=== PATIENT | male | born 1940 | race Caucasian/White ===

== ENCOUNTER 2019-06-13 17:19 | Inpatient (IN) | payer MEDICARE, MEDICAID, SELFPAY ==
--- NOTE | ~2019-06-13 | US_ITS ---
EXAMINATION: US right upper quadrant DATE: 06/18/2019 13:15 INDICATION: Elevated liver enzymes TECHNIQUE: Multiple grayscale and Doppler ultrasound images of the abdomen were obtained. COMPARISON: None FINDINGS: The pancreatic head and body are normal in appearance. The pancreatic tail is not visualized. Liver has normal echogenicity and contour, with a smooth surface. No liver lesion identified. No intrahepat ic biliary duct dilation suspected. Portal venous flow was seen in the hepatopetal, normal direction and has normal Doppler waveform. There is hypoechoic material likely representing sludge filling the gallbladder which is dilated to 4.4 cm. No evident gallbladder wall thickening. There is increased ec hogenicity along a portion of the nondependent gallbladder wall with posterior acoustic shadowing, un clear whether this represents mural calcification or gallstones less dense than the more dependent sl udge. Sonographic Ford sign was reported as positive by the magneto specialist. The common bile duct measu res up to 6-7 mm which is within normal limits for age. IMPRESSION: 1. Shadowing along the nondependent wall of the gallbladder, unclear whether this represents gallston es floating within more dense sludge or mural calcifications. Favor the former. 2. Dilated gallbladder with positive Ford sign but without evident gallbladder wall thickening susp icious for early acute cholecystitis. If clinically indicated HIDA scan could be obtained for further evaluation. Reviewed, dictated and finalized at location A. IMPRESSION: 1. Shadowing along the nondependent wall of the gallbladder, unclear whether th is represents gallstones floating within more dense sludge or mural calcificati ons. Favor the former. 2. Dilated gallbladder with positive Ford sign but without evident gallbladde r wall thickening suspicious for early acute cholecystitis. If clinically indic ated HIDA scan could be obtained for further evaluation.
[2019-06-13 17:35] VITALS: BP 165/88; PULSE 68; RESP 18; TEMP 36.7; O2SAT 98
--- NOTE | 2019-06-13 19:33 | ADMGEN ---
This patient, Dagoberto Boyle, was admitted to 2nd Floor Room 210-2. Patient/family oriented to hospital policies and general routines including ID bracelet, bed and alarms, visiting hours, pain management, procedures, bathroom and other care routines, personal items, smoking policy, room service/diet, and visiting hours. Valuables list has been completed. Information on how to activate the Rapid Response Team has been discussed. Patient/Family are encouraged to report perceived risks to care and to ask questions if they do not understand what they are told or what they should do.
--- NOTE | 2019-06-13 22:30 | PC.NURSE ---
Patient appears to be sleeping by the rise and fall of his chest. Respirations even and unlabored. No distress noted. Call light in reach.
[2019-06-14] VITALS: BP 143/83; PULSE 72; RESP 18; TEMP 36.6; O2SAT 96
--- NOTE | 2019-06-14 01:20 | PC.NURSE ---
Patient appears to be sleeping by the rise and fall of his chest. Respirations even and unlabored. No distress noted. Call light in reach.
[2019-06-14 08:00] VITALS: BP 107/63; PULSE 75; RESP 16; TEMP 37.3; O2SAT 97
[2019-06-14] MEDS: lisinopriL 5 MG TABLET PO (08:58)
[2019-06-14] MEDS: RIVAROXABAN 10 MG TABLET 20 MG PO (08:58)
[2019-06-14 08:59] VITALS: PULSE 72
[2019-06-14] MEDS: CYANOCOBALAMIN 1,000 MCG TABLET 1000 MCG PO (08:59)
[2019-06-14] MEDS: hydroCHLOROthiazide 25 MG TABLET PO (08:59)
[2019-06-14] MEDS: atenoloL 50 MG TABLET PO (08:59)
[2019-06-14] MEDS: ESCITALOPRAM OXALATE 10 MG TABLET PO (08:59)
[2019-06-14] MEDS: FOLIC ACID 1 MG TABLET PO (08:59)
[2019-06-14] MEDS: ATORVASTATIN 10 MG TABLET PO (08:59)
[2019-06-14] MEDS: THERAPEUTIC MULTIVITAMINS/MINERALS TAB (*BKC) 1 TABLET PO (11:27)
[2019-06-14 11:54] LABS: Glucose Point of Care 394 (65-105)
--- NOTE | 2019-06-14 12:27 | PM.IMHP ---
H&P: HPI History of Present Illness Chief complaint: rehab <Anayeli Sargent NP - Last Filed: 06/14/19 18:04> Narrative: Dagoberto Boyle is a 79 year old male admitted to swing rehabilitation, late yesterday evening from [facility] in [facility]. On June 04 he reported acute onset of left shoulder pain when getting up from a chair. Workup revealed elevated white count and elevated lactate. He was admitted for sepsis of unknown source. He was started on vancomycin and levofloxacin. White count improved from 12.8-7.6. His blood cultures showed no growth. Culture around his penis grew strep resistant to clindamycin and tetracyclines. He has also had a chronic ulcer on the left posterior heel present since February 2018 under the care of Dr. Castillo and Nain; which as since healed and only a scab remains. UA was clear. CT of his left shoulder showed a small effusion. He was evaluated by Ortho Dr. De Leon and admitted for septic arthritis of the left shoulder. On June 08 they collected a shoulder aspirate sample that grew nothing. On June 09, he underwent arthroscopic irrigation debridement of the left shoulder with Dr. Sierra. We have requested culture results and sensitivities as well as infectious disease notes, but have yet to see those. Dagoberto also has a past history of insulin-dependent diabetes, diabetic neuropathy, and hypertension. Dagoberto has been admitted for swing rehabilitation to improve the mobility and strength of his left shoulder and arm through PT/OT, continue improving through IV antibiotics, and medical monitoring for improvement of infection and reduction of swelling to left arm. <Anayeli Sargent NP - Last Filed: 06/14/19 18:04> Review of Systems Review of Systems: All systems reviewed & are unremarkable except as noted in HPI and below <Anayeli Sargent NP - Last Filed: 06/14/19 18:04> Constitutional: Constitutional: Reports as per HPI, Denies excessive sweating, Denies headache(s), Denies increased appetite, Denies snoring, Reports weakness and Denies weight gain <Anayeli Sargent NP - Last Filed: 06/14/19 18:04> Eyes: Eyes: Reports as per HPI, Denies exophthalmos, Denies diplopia, Denies floaters and Denies loss of peripheral vision <Anayeli Sargent NP - Last Filed: 06/14/19 18:04> ENT: Reports as per HPI, Reports Normal hearing present, Denies facial pain, Denies headache(s), Denies odynophagia and Denies tinnitus <Anayeli Sargent NP - Last Filed: 06/14/19 18:04> Cardiovascular: Cardiovascular: Reports as per HPI, Denies chest pain, Denies diaphoresis, Denies pedal edema, Denies leg edema, Denies lightheadedness and Denies palpitations <Anayeli Sargent [employer]IP[employer]ING FOLDER - Last Filed: 06/14/19 18:04> Respiratory: Respiratory: Reports as per HPI, Denies cough, Denies hemoptysis, Denies dyspnea, Denies dyspnea on exertion, Denies snoring and Denies wheezing <Anayeli Sargent NP - Last Filed: 06/14/19 18:04> Gastrointestinal: Gastrointestinal: Reports as per HPI, Denies abdominal pain, Denies melena, Denies bloating, Denies hematochezia, Denies constipation, Denies heartburn, Denies diarrhea, Denies nausea, Denies odynophagia, Denies vomiting and Denies hematemesis <Anayeli Sargent NP - Last Filed: 06/14/19 18:04> Genitourinary: Genitourinary: Reports as per HPI and Denies flank pain <Anayeli Sargent NP - Last Filed: 06/14/19 18:04> Musculoskeletal: Musculoskeletal: Reports as per HPI, Denies back pain, Reports arthralgias, Reports joint swelling, Denies neck pain and Reports stiffness <Anayeli Sargent NP - Last Filed: 06/14/19 18:04> Comments: Joint pain, stiffness and swelling to left shoulder, left entire arm and left hand. <Anayeli Sargent NP - Last Filed: 06/14/19 18:04> Integumentary/Breasts: Skin/Breast: Reports as per HPI <Anayeli Sargent NP - Last Filed: 06/14/19 18:04> Neurologic: Reports as per HPI and Denies headache(s) <Anayeli Sargent NP - Last Filed: 06/14/19 18:0
[2019-06-14] MEDS: CENTRAL LINE FLUSH 10 ML IV PUSH ×2 (15:02→19:52)
[2019-06-14 16:00] VITALS: BP 131/72; PULSE 71; RESP 16; TEMP 37.3; O2SAT 98
[2019-06-14 16:41] LABS: Glucose Point of Care 269 (65-105)
[2019-06-14] MEDS: metFORMIN HCL XR 500 MG TAB.SR.24H 2000 MG PO (17:52)
[2019-06-14 20:53] LABS: Glucose Point of Care 283 (65-105)
[2019-06-14 23:52] VITALS: BP 131/69; PULSE 66; RESP 18; TEMP 36.1; O2SAT 96
[2019-06-15] MEDS: CENTRAL LINE FLUSH 10 ML IV PUSH ×3 (06:42→20:32)
[2019-06-15] MEDS: lisinopriL 5 MG TABLET PO (07:52)
[2019-06-15] MEDS: RIVAROXABAN 10 MG TABLET 20 MG PO (07:52)
[2019-06-15] MEDS: CYANOCOBALAMIN 1,000 MCG TABLET 1000 MCG PO (07:52)
[2019-06-15] MEDS: ATORVASTATIN 10 MG TABLET PO (07:52)
[2019-06-15] MEDS: THERAPEUTIC MULTIVITAMINS/MINERALS TAB (*BKC) 1 TABLET PO (07:52)
[2019-06-15 07:53] VITALS: PULSE 76
[2019-06-15] MEDS: FOLIC ACID 1 MG TABLET PO (07:53)
[2019-06-15] MEDS: ESCITALOPRAM OXALATE 10 MG TABLET PO (07:53)
[2019-06-15] MEDS: atenoloL 50 MG TABLET PO (07:53)
[2019-06-15] MEDS: hydroCHLOROthiazide 25 MG TABLET PO (07:55)
[2019-06-15 08:00] VITALS: BP 105/65; PULSE 76; RESP 18; TEMP 36.6; O2SAT 96
[2019-06-15 08:03] LABS: Glucose Point of Care 177 (65-105)
--- NOTE | 2019-06-15 09:48 | PC.NURSE ---
linda calls to request disposable razor for pt, put in pts room but he does not want to use it at this time, pt uses wipes to wash up, needs assistance with wiping buttocks/back, assist of 1 to stand, pt is sitting in chair
[2019-06-15 10:31] LABS: Basophils Absolute Auto 0.04 K/mm3 (0.00-0.10); Basophils Percent Auto 0.4 % (0.0-1.0); Eosinophils Absolute Auto 0.13 K/mm3 (0.02-0.50); Eosinophils Percent Auto 1.2 % (1.0-6.0); Hematocrit 42.6 % (37.0-46.0); Hemoglobin 13.9 g/dL (12.4-15.3); Immature Granulocyte Absolute 0.07 K/mm3 (0.00-0.00); Immature Granulocyte Percent A 0.6 % (0.0-0.0); Lymphocytes Absolute Auto 0.91 K/mm3 (1.10-4.50); Lymphocytes Percent Auto 8.3 % (18.0-42.0); Mean Corpuscular HGB Conc 32.6 g/dL (32.0-36.0); Mean Corpuscular Hemoglobin 29.8 pg (27.0-31.0); Mean Corpuscular Volume 91.4 fL (78.0-102.0); Mean Platelet Volume 9.4 fl (8.7-11.0); Monocytes Absolute Auto 0.68 K/mm3 (0.10-0.90); Monocytes Percent Auto 6.2 % (2.0-11.0); Neutrophils Absolute Auto 9.2 K/mm3 (1.7-7.2); Neutrophils Percent Auto 83.3 % (50.0-70.0); Platelet Count Result 293 K/mm3 (150-420); Red Blood Count 4.66 M/mm3 (4.70-6.10); Red Cell Distribution Width 13.4 % (11.6-14.4)
[2019-06-15 11:03] LABS: Alanine Aminotransferase 162 U/L (16-63); Albumin Level 2.2 g/dL (3.4-5.0); Alkaline Phosphatase 326 U/L (46-116); Aspartate Amino Transferase 115 U/L (15-37); Bilirubin,Total 0.7 mg/dL (0.00-1.00); Blood Urea Nitrogen 21 mg/dL (7-18); Calcium 8.1 mg/dL (8.5-10.1); Carbon Dioxide 30 mmol/L (21-32); Chloride 98 mmol/L (98-108); Estimated CRCL calculation 44 ml/min; Estimated Glomerular Filt Rate 56; Glucose 248 mg/dL (70-99); Osmolality Calculated 295 mOsm/kg (285-295); Sodium 137 mmol/L (136-145); Total Protein 5.7 g/dL (6.4-8.2)
[2019-06-15 11:35] LABS: Erythrocyte Sedimentation Rate 40 mm/hr (0-20)
[2019-06-15 11:48] LABS: Glucose Point of Care 268 (65-105)
--- NOTE | 2019-06-15 13:00 | PM.IMPN ---
Progress Note: A&P Assessment and Plan (1) Weakness: Code(s): R53.1 - Weakness Status: Acute Assessment and Plan: admitted to swing rehabilitation here from [facility] in [facility]. due to prolonged hospitalization of approximately 9-10 days, now has weakness/instability/imbalance and need for assistance with all ADLs also due to left shoulder surgery has weakness/instability/imbalance and need for assistance with all ADLs found to have septic arthritis and needs further IV antibiotics, pain control, and PT/OT. may participate in therapeutic activities (2) Septic arthritis: Code(s): M00.9 - Pyogenic arthritis, unspecified Status: Acute Assessment and Plan: June 04 he reported acute onset of left shoulder pain when getting up from a chair. Workup revealed elevated white count and elevated lactate. started on vancomycin and levofloxacin. White count improved from 12.8-7.6. His blood cultures showed no growth. Culture around his penis grew strep resistant to clindamycin and tetracyclines. He has also had a chronic ulcer on the left posterior heel present since February 2018 under the care of Dr. Castillo and Nain; which as since healed and only a scab remains. CT of his left shoulder showed a small effusion. He was evaluated by Ortho Dr. De Leon and admitted for septic arthritis of the left shoulder. On June 08 they collected a shoulder aspirate sample that grew nothing. June 09, he underwent arthroscopic irrigation debridement of the left shoulder with Dr. Sierra. We have requested culture results and sensitivities as well as infectious disease notes, but have yet to see those. Dagoberto also has a past history of insulin-dependent diabetes, diabetic neuropathy, and hypertension. Dagoberto has been admitted for swing rehabilitation to improve the mobility and strength of his left shoulder and arm through PT/OT, continue improving through IV antibiotics, and medical monitoring for improvement of infection and reduction of swelling to left arm. CALL and SCHEDULE Follow up in 1 week after discharge; with Surgeon Dr. David Sierra, [facility], in [place], [place]. [phone]. Then on July 23 at 8am, arrive at 7:45am, appointment with Dr. Prasanna Dominguez in [place], [place]. [facility] medical group, Foot and Ankle Specialist. [phone] (3) HTN (hypertension): Code(s): I10 - Essential (primary) hypertension Status: Acute Assessment and Plan: BPs well controlled Vital signs Q8 hours. Will continue to monitor (4) IDDM (insulin dependent diabetes mellitus): Status: Acute Assessment and Plan: a.c. HS glucose bedside checks continue his home medications: Jardiance 10 mg Daily Tresiba insulin 30 units daily low dose SSI with hypoglycemia PRN meds in place as well. diabetic carb controlled diet Glucose levels today 177 will continue to monitor Subjective Date/time seen: 06/15/19 13:00 Mr. Boyle'arsalan labs were drawn and reviewed today. His white count was 6.6 on June 11 at [facility], today on June 14 his white count is 11.0. He has been on IV Rocephin since his swing rehab admission , per discharge orders from [facility]. We have requested Infectious Disease notes and consultation notes, as well as culture sensitivities from [facility] for the last 3 days and have yet to receive those. I called [facility] microbiology department ([phone]) today and gained the following information; he never had a urine culture completed there, his blood cultures x2 on June 08 showed no growth, his left shoulder needle aspiration on June 08 showed no growth, and his left shoulder incision and drainage culture on June 09 showed no growth. It is my understanding based on the review of all the hospitalist notes from [facility] that I have read, that his cultur
[2019-06-15 13:46] LABS: Add Urine Microscopic? YES; Appearance Urine Clear (Clear); Bilirubin Urine Negative (Negative); Blood Urine Negative (Negative); Color Urine Yellow (Yellow); Glucose Urine UA 3+ (Negative); Ketones Urine Negative (Negative); Leukocyte Esterase Ur Negative (Negative); Nitrate Urine Negative (Negative); Protein Urine Negative (Negative); Urobilinogen Urine 0.2 mg/dL (0.2-1.0)
[2019-06-15 13:51] LABS: RBC Urine None seen /hpf (0-2); Squamous Epithelial Cell Urine None seen /hpf (Few); WBC Urine None seen /hpf (0-3)
[2019-06-15 13:52] LABS: Bacteria Urine None seen /hpf; Budding Yeast Urine Present /hpf
[2019-06-15 15:40] VITALS: BP 128/60; PULSE 60; RESP 20; TEMP 36.4; O2SAT 98
[2019-06-15 16:35] LABS: Glucose Point of Care 335 (65-105)
[2019-06-15] MEDS: metFORMIN HCL XR 500 MG TAB.SR.24H 2000 MG PO (17:33)
--- NOTE | 2019-06-15 18:28 | PC.NURSE ---
Back to bed using gait belt & assist of two. Needed objects in reach.
--- NOTE | 2019-06-15 20:09 | PM.EVENT ---
Event Note Event Note Event Note: Discussed with Anayeli Sargent. Pt seen by me. Swelling of left fingers, hand and wrist. No redness or tenderness. Left shoulder without redness or swelling. Able to externally rotate a few degrees past neutral. I reviewed and agree with Anayeli Sargent's note. Await culture results from recent joint lavage; in the meantime add vanco back to IV Ang.
[2019-06-15 20:54] LABS: Glucose Point of Care 218 (65-105)
[2019-06-16] VITALS: BP 131/70; PULSE 68; RESP 18; TEMP 36.5; O2SAT 97
[2019-06-16] MEDS: CENTRAL LINE FLUSH 10 ML IV PUSH ×3 (05:55→21:34)
[2019-06-16 07:45] VITALS: BP 138/75; PULSE 72; RESP 18; TEMP 36.7; O2SAT 97
[2019-06-16 08:04] LABS: Glucose Point of Care 100 (65-105)
[2019-06-16 09:47] VITALS: PULSE 72
[2019-06-16] MEDS: lisinopriL 5 MG TABLET PO (09:47)
[2019-06-16] MEDS: hydroCHLOROthiazide 25 MG TABLET PO (09:47)
[2019-06-16] MEDS: FOLIC ACID 1 MG TABLET PO (09:47)
[2019-06-16] MEDS: ATORVASTATIN 10 MG TABLET PO (09:47)
[2019-06-16] MEDS: ESCITALOPRAM OXALATE 10 MG TABLET PO (09:47)
[2019-06-16] MEDS: atenoloL 50 MG TABLET PO (09:47)
[2019-06-16] MEDS: THERAPEUTIC MULTIVITAMINS/MINERALS TAB (*BKC) 1 TABLET PO (09:47)
[2019-06-16] MEDS: CYANOCOBALAMIN 1,000 MCG TABLET 1000 MCG PO (09:47)
[2019-06-16] MEDS: RIVAROXABAN 10 MG TABLET 20 MG PO (09:47)
[2019-06-16 11:26] LABS: Glucose Point of Care 243 (65-105)
[2019-06-16] MEDS: SACCHAROMYCES BOULARDII 250 MG CAPSULE PO ×2 (12:52→17:12)
--- NOTE | 2019-06-16 13:57 | PM.IMPN ---
Progress Note: A&P Assessment and Plan (1) Weakness: Code(s): R53.1 - Weakness Status: Acute Assessment and Plan: admitted to swing rehabilitation here from [facility] in [facility]. due to prolonged hospitalization of approximately 9-10 days, now has weakness/instability/imbalance and need for assistance with all ADLs also due to left shoulder surgery has weakness/instability/imbalance and need for assistance with all ADLs found to have septic arthritis and needs further IV antibiotics, pain control, and PT/OT. may participate in therapeutic activities (2) Septic arthritis: Code(s): M00.9 - Pyogenic arthritis, unspecified Status: Acute Assessment and Plan: June 04 he reported acute onset of left shoulder pain when getting up from a chair. Workup revealed elevated white count and elevated lactate. started on vancomycin and levofloxacin. White count improved from 12.8-7.6. His blood cultures showed no growth. Culture around his penis grew strep resistant to clindamycin and tetracyclines. He has also had a chronic ulcer on the left posterior heel present since February 2018 under the care of Dr. Castillo and Nain; which as since healed and only a scab remains. CT of his left shoulder showed a small effusion. He was evaluated by Ortho Dr. De Leon and admitted for septic arthritis of the left shoulder. On June 08 they collected a shoulder aspirate sample that grew nothing. June 09, he underwent arthroscopic irrigation debridement of the left shoulder with Dr. Sierra. We have requested culture results and sensitivities as well as infectious disease notes, but have yet to see those. Dagoberto also has a past history of insulin-dependent diabetes, diabetic neuropathy, and hypertension. Dagoberto has been admitted for swing rehabilitation to improve the mobility and strength of his left shoulder and arm through PT/OT, continue improving through IV antibiotics, and medical monitoring for improvement of infection and reduction of swelling to left arm. CALL and SCHEDULE Follow up in 1 week after discharge; with Surgeon Dr. David Sierra, [facility], in [place], [place]. [phone]. Then on July 23 at 8am, arrive at 7:45am, appointment with Dr. Prasanna Dominguez in [place], [place]. [facility] medical group, Foot and Ankle Specialist. [phone] (3) HTN (hypertension): Code(s): I10 - Essential (primary) hypertension Status: Acute Assessment and Plan: BPs well controlled Vital signs Q8 hours. Will continue to monitor (4) IDDM (insulin dependent diabetes mellitus): Status: Acute Assessment and Plan: a.c. HS glucose bedside checks continue his home medications: Jardiance 10 mg Daily Tresiba insulin 30 units daily low dose SSI with hypoglycemia PRN meds in place as well. diabetic carb controlled diet Glucose levels today 177 will continue to monitor Subjective Date/time seen: 06/16/19 13:57 Mr. Boyle was lying in bed on his right side when I went to see him and examined him this morning. He was doing well. He had just completed his physical therapy session. His left arm was elevated on a pillow, slightly swollen, but much better than 2 days ago. The left arm skin is lose and there is no firmness or tightness to his left arm at all today. There is no redness or drainage to his incisions today. Nursing staff is examining them daily, and dressing them and treating them as I have instructed and ordered. His right arm PICC line site looks well, without redness, without drainage, and without pain. His PICC dressing is clean and dry an occlusive. Continuing to attempt to get his infectious disease notes and discharge instructions from [facility]. We also have questions about what cultures were collected and their sensitivities resulting. We are without any culture results that warrant IV Rocephin to be c
--- NOTE | 2019-06-16 14:15 | PC.NURSE ---
This nurse spoke with Nurse Lay from office about patient restrictions and sutures. Patient does not have any mobility restrictions to left arm per . Sutures to be removed 2 weeks from operation date. gave FISHING ACCESSORIES MAKER at this facility okay to remove them here. Call back number for office- [phone]
[2019-06-16 15:45] VITALS: BP 130/57; PULSE 70; RESP 18; TEMP 37.3; O2SAT 97
[2019-06-16] MEDS: metFORMIN HCL XR 500 MG TAB.SR.24H 2000 MG PO (17:12)
[2019-06-16 17:26] LABS: Glucose Point of Care 188 (65-105)
[2019-06-16 21:43] LABS: Glucose Point of Care 160 (65-105)
[2019-06-17] VITALS: BP 140/76; PULSE 73; RESP 20; TEMP 36.7; O2SAT 95
[2019-06-17] MEDS: CENTRAL LINE FLUSH 10 ML IV PUSH ×3 (05:39→20:55)
[2019-06-17 07:45] VITALS: BP 145/82; PULSE 72; RESP 18; TEMP 36.4; O2SAT 94
[2019-06-17 07:49] LABS: Glucose Point of Care 120 (65-105)
[2019-06-17 08:00] VITALS: O2SAT 97
[2019-06-17 08:24] VITALS: PULSE 72
[2019-06-17] MEDS: atenoloL 50 MG TABLET PO (08:24)
[2019-06-17] MEDS: RIVAROXABAN 10 MG TABLET 20 MG PO (08:24)
[2019-06-17] MEDS: ESCITALOPRAM OXALATE 10 MG TABLET PO (08:25)
[2019-06-17] MEDS: THERAPEUTIC MULTIVITAMINS/MINERALS TAB (*BKC) 1 TABLET PO (08:25)
[2019-06-17] MEDS: FOLIC ACID 1 MG TABLET PO (08:25)
[2019-06-17] MEDS: ATORVASTATIN 10 MG TABLET PO (08:25)
[2019-06-17] MEDS: CYANOCOBALAMIN 1,000 MCG TABLET 1000 MCG PO (08:25)
[2019-06-17] MEDS: hydroCHLOROthiazide 25 MG TABLET PO (08:25)
[2019-06-17] MEDS: lisinopriL 5 MG TABLET PO (08:25)
[2019-06-17] MEDS: SACCHAROMYCES BOULARDII 250 MG CAPSULE PO ×2 (08:27→17:57)
--- NOTE | 2019-06-17 10:30 | PC.NURSE ---
Patient sitting up in chair resting. Ice pack cont. on shoulder. Denies any needs. Working on word search. call light at side.
[2019-06-17 11:35] LABS: Glucose Point of Care 190 (65-105)
--- NOTE | 2019-06-17 12:39 | P.PNCROSS_ITS ---
Event Note Event Note Event Note: Yesterday, we were finally able to get in touch with the Orthopedic Surgeon and his Infectious disease physician's office as well for further orders and clarifications. His orthopedic surgeon said there was no restrictions for his left arm or shoulder. Orthopedic Surgeon [facility] Sutures 2 weeks s/p I&D on June 09 which would have suture removal on 06/23. The infectious disease physician also informed us yesterday that he wants a CRP checked weekly with labs, and the patient is to continue on Rocephin IV for 2 weeks at 2 g every 24 hours. While at [facility], his ESR was 92 and CRP is 19.9 on June 09, and Procalcitonin level 0.37 and CRP was 16.20 on June 11 while on IV Vanc and IV Rocephin. ESR is 40 and CRP is 20 on June 14 while on only IV Rocephin. Will continue to monitor. Infectious disease physician Dr. Ballesteros wants patient's weekly labs (CBC, BMP or CMP, and CRP) faxed to him at [phone]. Discussed with Professional Golf Tournament Player, plan for possible discharge to home on June 29. Dagoberto is to have follow up appointments with both his Orthopedic Surgeon Dr. Sierra and his Infectious disease physician Dr. Ballesteros to be seen in 1-2 weeks s/p discharge from [facility]. <Anayeli Sargent NP - Last Filed: 06/17/19 13:15>
[2019-06-17 15:35] VITALS: BP 129/69; PULSE 72; RESP 18; TEMP 36.6; O2SAT 97
[2019-06-17 17:38] LABS: Glucose Point of Care 249 (65-105)
[2019-06-17] MEDS: metFORMIN HCL XR 500 MG TAB.SR.24H 2000 MG PO (17:58)
[2019-06-17 21:18] LABS: Glucose Point of Care 242 (65-105)
[2019-06-18] VITALS: BP 155/68; PULSE 72; RESP 18; TEMP 36.4; O2SAT 95
--- NOTE | 2019-06-18 02:09 | PC.NURSE ---
pt sleeping, respirations even and regular, no evidence of distress noted.
[2019-06-18] MEDS: CENTRAL LINE FLUSH 10 ML IV PUSH ×3 (05:26→21:27)
[2019-06-18 08:00] VITALS: BP 100/60; PULSE 96; RESP 18; TEMP 36.6; O2SAT 96
[2019-06-18] MEDS: RIVAROXABAN 10 MG TABLET 20 MG PO (08:12)
[2019-06-18] MEDS: SACCHAROMYCES BOULARDII 250 MG CAPSULE PO ×2 (08:12→17:42)
[2019-06-18] MEDS: CYANOCOBALAMIN 1,000 MCG TABLET 1000 MCG PO (08:13)
[2019-06-18] MEDS: ATORVASTATIN 10 MG TABLET PO (08:13)
[2019-06-18] MEDS: FOLIC ACID 1 MG TABLET PO (08:13)
[2019-06-18] MEDS: ESCITALOPRAM OXALATE 10 MG TABLET PO (08:13)
[2019-06-18] MEDS: THERAPEUTIC MULTIVITAMINS/MINERALS TAB (*BKC) 1 TABLET PO (08:13)
[2019-06-18 09:23] LABS: Basophils Absolute Auto 0.04 K/mm3 (0.00-0.10); Basophils Percent Auto 0.5 % (0.0-1.0); Eosinophils Absolute Auto 0.16 K/mm3 (0.02-0.50); Hematocrit 40.8 % (37.0-46.0); Hemoglobin 13.7 g/dL (12.4-15.3); Immature Granulocyte Absolute 0.07 K/mm3 (0.00-0.00); Immature Granulocyte Percent A 0.9 % (0.0-0.0); Lymphocytes Absolute Auto 1.15 K/mm3 (1.10-4.50); Lymphocytes Percent Auto 14.5 % (18.0-42.0); Mean Corpuscular HGB Conc 33.6 g/dL (32.0-36.0); Mean Corpuscular Hemoglobin 30.2 pg (27.0-31.0); Mean Corpuscular Volume 89.9 fL (78.0-102.0); Mean Platelet Volume 8.9 fl (8.7-11.0); Monocytes Absolute Auto 0.75 K/mm3 (0.10-0.90); Monocytes Percent Auto 9.5 % (2.0-11.0); Neutrophils Absolute Auto 5.7 K/mm3 (1.7-7.2); Neutrophils Percent Auto 72.6 % (50.0-70.0); Platelet Count Result 411 K/mm3 (150-420); Red Blood Count 4.54 M/mm3 (4.70-6.10); Red Cell Distribution Width 13.2 % (11.6-14.4); White Blood Count 7.9 K/mm3 (4.8-10.8)
[2019-06-18 09:38] LABS: Alanine Aminotransferase 95 U/L (16-63); Albumin Level 2.1 g/dL (3.4-5.0); Alkaline Phosphatase 250 U/L (46-116); Anion Gap 13.4 mmol/L (7-16); Aspartate Amino Transferase 51 U/L (15-37); Bilirubin,Total 0.7 mg/dL (0.00-1.00); Blood Urea Nitrogen 17 mg/dL (7-18); Calcium 8.6 mg/dL (8.5-10.1); Carbon Dioxide 28 mmol/L (21-32); Chloride 99 mmol/L (98-108); Estimated CRCL calculation 47 ml/min; Estimated Glomerular Filt Rate 60; Glucose 233 mg/dL (70-99); Osmolality Calculated 292 mOsm/kg (285-295); Potassium 3.4 mmol/L (3.5-5.1); Sodium 137 mmol/L (136-145); Total Protein 6.7 g/dL (6.4-8.2)
[2019-06-18 10:02] LABS: CRP 17.2 mg/dL (0.0-0.9)
[2019-06-18 10:23] LABS: Erythrocyte Sedimentation Rate 44 mm/hr (0-20)
[2019-06-18 11:12] VITALS: BP 128/74; PULSE 73; RESP 18; TEMP 36.9; O2SAT 96
[2019-06-18 11:47] LABS: Occult Blood Negative (Negative)
[2019-06-18 12:31] LABS: Alanine Aminotransferase 85 U/L (16-63); Alkaline Phosphatase 232 U/L (46-116); Aspartate Amino Transferase 48 U/L (15-37); Bilirubin Direct 0.3 mg/dL (0-0.2); Bilirubin,Total 0.6 mg/dL (0.00-1.00); Ferritin 541 ng/mL (26-388); Iron 20 ug/dL (65-175); Total Protein 6.2 g/dL (6.4-8.2)
[2019-06-18 12:35] LABS: Acetaminophen 0 ug/mL (10-30)
[2019-06-18 12:56] LABS: Ammonia < 10 umol/L (11-32)
[2019-06-18 13:01] LABS: CRP 16.5 mg/dL (0.0-0.9)
[2019-06-18 13:03] LABS: Percent Iron Saturation 13 % (12-57)
[2019-06-18 13:05] LABS: Bilirubin Direct 0.3 mg/dL (0-0.2); Bilirubin Indirect 0.4 mg/dL (0-1.0)
[2019-06-18 13:11] LABS: Thyroid Stimulating Hormone Reflex 1.77 u/IU/mL (0.36-3.74)
--- NOTE | 2019-06-18 15:38 | P.PNIM_ITS ---
Progress Note: A&P Assessment and Plan (1) Weakness: Code(s): R53.1 - Weakness Status: Acute Assessment and Plan: * admitted to swing rehabilitation here from [facility] in [facility]. * Exhibit tolerance during physical activity as evidenced by a normal fluctuation of vital signs during physical activity. * Patient will be ability to perform required activities of daily living. * Provide appropriate nutrition for healing and strength. * Use appropriate to prevent falls. * Continue physical therapy/occupational therapy. (2) Septic arthritis: Code(s): M00.9 - Pyogenic arthritis, unspecified Status: Acute Assessment and Plan: * CT of his left shoulder showed a small effusion. He was evaluated by Ortho Dr. De Leon and admitted for septic arthritis of the left shoulder. * On June 08 they collected a shoulder aspirate sample that grew nothing. * June 09, he underwent arthroscopic irrigation debridement of the left shoulder with Dr. Sierra. We have requested culture results and sensitivities as well as infectious disease notes, but have yet to see those. * Dagoberto has been admitted for swing rehabilitation to improve the mobility and strength of his left shoulder and arm through PT/OT, continue improving through IV antibiotics, and medical monitoring for improvement of infection and reduction of swelling to left arm. * CALL and SCHEDULE Follow up in 1 week after discharge; with Surgeon Dr. David Sierra, [facility], in [place], [place]. [phone]. * Then on July 23 at 8am, arrive at 7:45am, appointment with Dr. Prasanna Dominguez in [place], [place]. [facility] medical group, Foot and Ankle Specialist. [phone] (3) HTN (hypertension): Code(s): I10 - Essential (primary) hypertension Status: Acute Assessment and Plan: * BPs soft * Vital signs Q8 hours. * Will continue to monitor * will adjust medication as needed (4) IDDM (insulin dependent diabetes mellitus): Status: Acute Assessment and Plan: * blood sugar less than 200 * continue Accu-Cheks * continue low dose SSI with hypoglycemia PRN meds in place as well. * diabetic carb controlled diet * will continue to monitor, will adjust medication as needed (5) Elevated liver enzymes: Code(s): R74.8 - Abnormal levels of other serum enzymes Status: Acute Assessment and Plan: * it appears that patient's AST and ALT was elevated at [facility] AST is 83 ALT is 113. unsure if that is patient's baseline. * ordered hepatic panel with ultrasound of the abdomen all pending * for hepatotoxicity medication Subjective Date/time seen: 06/18/19 15:38 patient has no complaints at this time. Patient able to tolerate all meals , slept well. Patient denies SOB, CP, palpitation, extremity numbness, lightheadness, dizziness, constipation, diarrhea, chills or fever. . patient is currently a swing bed patient and noted that his PT OT is going well. his liver enzymes her elevated I will complete of hepatic panel with the abdominal ultrasound. Patient able to tolerate all meals , slept well . Patient denies SOB, CP, palpitation, extremity numbness, lightheadness, dizziness, constipation, diarrhea, chills or fever. Review of Systems Review of Systems: All systems reviewed & are unremarkable except as noted in HPI and below Constitutional: Constitutional: Reports as per HPI, Denies excessive sweating, Denies headache(s), Denies increased appetite, Denies snoring, Reports weakness and
--- NOTE | 2019-06-18 15:38 | PM.IMPN ---
Progress Note: A&P Assessment and Plan (1) Weakness: Code(s): R53.1 - Weakness Status: Acute Assessment and Plan: admitted to swing rehabilitation here from [facility] in [facility]. Exhibit tolerance during physical activity as evidenced by a normal fluctuation of vital signs during physical activity. Patient will be ability to perform required activities of daily living. Provide appropriate nutrition for healing and strength. Use appropriate to prevent falls. Continue physical therapy/occupational therapy. (2) Septic arthritis: Code(s): M00.9 - Pyogenic arthritis, unspecified Status: Acute Assessment and Plan: CT of his left shoulder showed a small effusion. He was evaluated by Ortho Dr. De Leon and admitted for septic arthritis of the left shoulder. On June 08 they collected a shoulder aspirate sample that grew nothing. June 09, he underwent arthroscopic irrigation debridement of the left shoulder with Dr. Sierra. We have requested culture results and sensitivities as well as infectious disease notes, but have yet to see those. Dagoberto has been admitted for swing rehabilitation to improve the mobility and strength of his left shoulder and arm through PT/OT, continue improving through IV antibiotics, and medical monitoring for improvement of infection and reduction of swelling to left arm. CALL and SCHEDULE Follow up in 1 week after discharge; with Surgeon Dr. David Sierra, [facility], in [place], [place]. [phone]. Then on July 23 at 8am, arrive at 7:45am, appointment with Dr. Prasanna Dominguez in [place], [place]. [facility] medical group, Foot and Ankle Specialist. [phone] (3) HTN (hypertension): Code(s): I10 - Essential (primary) hypertension Status: Acute Assessment and Plan: BPs soft Vital signs Q8 hours. Will continue to monitor will adjust medication as needed (4) IDDM (insulin dependent diabetes mellitus): Status: Acute Assessment and Plan: blood sugar less than 200 continue Accu-Cheks continue low dose SSI with hypoglycemia PRN meds in place as well. diabetic carb controlled diet will continue to monitor, will adjust medication as needed (5) Elevated liver enzymes: Code(s): R74.8 - Abnormal levels of other serum enzymes Status: Acute Assessment and Plan: it appears that patient's AST and ALT was elevated at [facility] AST is 83 ALT is 113. unsure if that is patient's baseline. ordered hepatic panel with ultrasound of the abdomen all pending for hepatotoxicity medication Subjective Date/time seen: 06/18/19 15:38 patient has no complaints at this time. Patient able to tolerate all meals , slept well. Patient denies SOB, CP, palpitation, extremity numbness, lightheadness, dizziness, constipation, diarrhea, chills or fever. . patient is currently a swing bed patient and noted that his PT OT is going well. his liver enzymes her elevated I will complete of hepatic panel with the abdominal ultrasound. Patient able to tolerate all meals , slept well . Patient denies SOB, CP, palpitation, extremity numbness, lightheadness, dizziness, constipation, diarrhea, chills or fever. Review of Systems Review of Systems: All systems reviewed & are unremarkable except as noted in HPI and below Constitutional: Constitutional: Reports as per HPI, Denies excessive sweating, Denies headache(s), Denies increased appetite, Denies snoring, Reports weakness and Denies weight gain Eyes: Eyes: Reports as per HPI, Denies exophthalmos, Denies diplopia, Denies floaters and Denies loss of peripheral vision ENT: Reports as per HPI, Reports Normal hearing present, Denies facial pain, Denies headache(s), Denies neck pain, Denies odynophagia and Denies tinnitus Cardiovascular: Cardiovascular: Reports as per HPI, Denies chest pain, Denies diaphoresis, Denies
[2019-06-18 16:00] VITALS: BP 143/76; PULSE 70; RESP 16; TEMP 36.6; O2SAT 98
[2019-06-18 17:24] LABS: Glucose Point of Care 152 (65-105)
[2019-06-18] MEDS: metFORMIN HCL XR 500 MG TAB.SR.24H 2000 MG PO (17:44)
--- NOTE | 2019-06-18 20:24 | PM.EVENT ---
Event Note Event Note Event Note: Patient states he feels well and has no complaints today. He notes improved range of motion on his left shoulder and decreased swelling of his left arm. States that he walked in the hallways today without difficulty. vital stable, afebrile. Alert oriented. Mucous membranes pink and moist. Regular rate and rhythm without murmur rub or gallop. Lungs are clear to auscultation bilaterally. Shoulder is nontender and there is only minimal pitting edema at the left dorsal hand. Distal neurovascular exam is intact. Elevated LFTs persist. White count is improving. I have examined the patient's reviewed the chart. I discussed the patient's care with Phoenix Ruano APN and agree with her assessment and plan.
[2019-06-19] VITALS: BP 124/64; PULSE 76; RESP 20; TEMP 37.3; O2SAT 96
[2019-06-19] MEDS: CENTRAL LINE FLUSH 10 ML IV PUSH ×3 (05:34→21:16)
[2019-06-19 05:42] LABS: Hematocrit 37.4 % (37.0-46.0); Hemoglobin 12.3 g/dL (12.4-15.3); Mean Corpuscular HGB Conc 32.9 g/dL (32.0-36.0); Mean Corpuscular Hemoglobin 29.6 pg (27.0-31.0); Mean Corpuscular Volume 89.9 fL (78.0-102.0); Mean Platelet Volume 8.7 fl (8.7-11.0); Platelet Count Result 355 K/mm3 (150-420); Red Blood Count 4.16 M/mm3 (4.70-6.10); Red Cell Distribution Width 13.2 % (11.6-14.4); White Blood Count 6.8 K/mm3 (4.8-10.8)
[2019-06-19 06:13] LABS: Alanine Aminotransferase 82 U/L (16-63); Albumin Level 1.9 g/dL (3.4-5.0); Alkaline Phosphatase 209 U/L (46-116); Anion Gap 13.1 mmol/L (7-16); Aspartate Amino Transferase 56 U/L (15-37); Bilirubin,Total 0.5 mg/dL (0.00-1.00); Blood Urea Nitrogen 15 mg/dL (7-18); Calcium 8.2 mg/dL (8.5-10.1); Carbon Dioxide 28 mmol/L (21-32); Chloride 102 mmol/L (98-108); Estimated CRCL calculation 54 ml/min; Estimated Glomerular Filt Rate > 60; Glucose 132 mg/dL (70-99); Osmolality Calculated 292 mOsm/kg (285-295); Potassium 3.1 mmol/L (3.5-5.1); Sodium 140 mmol/L (136-145)
[2019-06-19 07:39] LABS: Glucose Point of Care 119 (65-105)
[2019-06-19] MEDS: ESCITALOPRAM OXALATE 10 MG TABLET PO (08:40)
[2019-06-19] MEDS: FOLIC ACID 1 MG TABLET PO (08:40)
[2019-06-19] MEDS: RIVAROXABAN 10 MG TABLET 20 MG PO (08:40)
[2019-06-19] MEDS: CYANOCOBALAMIN 1,000 MCG TABLET 1000 MCG PO (08:40)
[2019-06-19 08:41] VITALS: PULSE 76
[2019-06-19] MEDS: hydroCHLOROthiazide 25 MG TABLET PO (08:41)
[2019-06-19] MEDS: SACCHAROMYCES BOULARDII 250 MG CAPSULE PO ×2 (08:41→17:03)
[2019-06-19] MEDS: THERAPEUTIC MULTIVITAMINS/MINERALS TAB (*BKC) 1 TABLET PO (08:41)
[2019-06-19] MEDS: lisinopriL 5 MG TABLET PO (08:41)
[2019-06-19] MEDS: ATORVASTATIN 10 MG TABLET PO (08:41)
[2019-06-19] MEDS: atenoloL 50 MG TABLET PO (08:41)
[2019-06-19 09:10] VITALS: BP 118/63; PULSE 79; RESP 16; TEMP 36.4; O2SAT 98
[2019-06-19 11:38] LABS: Glucose Point of Care 210 (65-105)
[2019-06-19 16:24] VITALS: BP 123/57; PULSE 68; RESP 16; TEMP 36.6; O2SAT 98
[2019-06-19] MEDS: metFORMIN HCL XR 500 MG TAB.SR.24H 2000 MG PO (17:03)
[2019-06-19 17:14] LABS: Glucose Point of Care 204 (65-105)
--- NOTE | 2019-06-19 21:00 | PC.NURSE ---
PICC line dressing changed, flushed well, no s/s of infection
[2019-06-19 21:19] LABS: Glucose Point of Care 193 (65-105)
--- NOTE | 2019-06-19 23:20 | PC.NURSE ---
pt c/o sore bottom, cleansed with alexander wipe then barrier cream applied, pt reported felt better now
[2019-06-19 23:21] VITALS: BP 129/65; PULSE 69; RESP 18; TEMP 37; O2SAT 95
--- NOTE | 2019-06-20 03:23 | PC.NURSE ---
pt sleeping, respirations even and regular, no evidence of distress noted
[2019-06-20] MEDS: CENTRAL LINE FLUSH 10 ML IV PUSH ×3 (05:59→21:11)
[2019-06-20 07:41] LABS: Glucose Point of Care 120 (65-105)
[2019-06-20] MEDS: ATORVASTATIN 10 MG TABLET PO (08:12)
[2019-06-20] MEDS: CYANOCOBALAMIN 1,000 MCG TABLET 1000 MCG PO (08:12)
[2019-06-20] MEDS: ESCITALOPRAM OXALATE 10 MG TABLET PO (08:12)
[2019-06-20] MEDS: hydroCHLOROthiazide 25 MG TABLET PO (08:12)
[2019-06-20] MEDS: FOLIC ACID 1 MG TABLET PO (08:12)
[2019-06-20] MEDS: RIVAROXABAN 10 MG TABLET 20 MG PO (08:12)
[2019-06-20] MEDS: lisinopriL 5 MG TABLET PO (08:12)
[2019-06-20] MEDS: THERAPEUTIC MULTIVITAMINS/MINERALS TAB (*BKC) 1 TABLET PO (08:12)
[2019-06-20 08:13] VITALS: PULSE 76
[2019-06-20] MEDS: atenoloL 50 MG TABLET PO (08:13)
[2019-06-20] MEDS: SACCHAROMYCES BOULARDII 250 MG CAPSULE PO ×2 (08:13→17:02)
[2019-06-20 09:19] VITALS: BP 139/79; PULSE 70; RESP 18; TEMP 36.9; O2SAT 97
[2019-06-20 11:15] LABS: Glucose Point of Care 187 (65-105)
--- NOTE | 2019-06-20 15:11 | PC.NURSE ---
Report received from off going nurse; Patient lying in bed. No signs of distress
[2019-06-20 15:46] LABS: Glucose Point of Care 231 (65-105)
[2019-06-20 16:00] VITALS: BP 121/47; PULSE 67; RESP 18; TEMP 36.6; O2SAT 98
--- NOTE | 2019-06-20 16:00 | PC.NURSE ---
Up to chair with gait belt and quad cane. Some difficulty rising, needing assist, using 1,2,3,method to rise from bed. Gait steady once up. Left arm elevated on one pillow. Offered ice pack and refused.
[2019-06-20] MEDS: metFORMIN HCL XR 500 MG TAB.SR.24H 2000 MG PO (17:02)
[2019-06-20 20:54] LABS: Ceruloplasmin 37 mg/dL (18-36)
[2019-06-20 21:26] LABS: Glucose Point of Care 199 (65-105)
[2019-06-21] VITALS: BP 124/64; PULSE 62; RESP 20; TEMP 36.6; O2SAT 96
--- NOTE | 2019-06-21 01:10 | PC.NURSE ---
Sleeping, resp even. No signs of discomfort noted. Needed objects in reach.
--- NOTE | 2019-06-21 02:11 | PC.NURSE ---
Pt spilled urinal. Linen changed.
[2019-06-21] MEDS: CENTRAL LINE FLUSH 10 ML IV PUSH ×3 (05:22→21:09)
[2019-06-21 07:35] VITALS: BP 133/66; PULSE 71; RESP 18; TEMP 37.4; O2SAT 97
[2019-06-21 07:50] LABS: Glucose Point of Care 102 (65-105)
[2019-06-21] MEDS: SACCHAROMYCES BOULARDII 250 MG CAPSULE PO ×2 (09:24→17:17)
[2019-06-21 09:25] VITALS: PULSE 71
[2019-06-21] MEDS: lisinopriL 5 MG TABLET PO (09:25)
[2019-06-21] MEDS: ATORVASTATIN 10 MG TABLET PO (09:25)
[2019-06-21] MEDS: CYANOCOBALAMIN 1,000 MCG TABLET 1000 MCG PO (09:25)
[2019-06-21] MEDS: FOLIC ACID 1 MG TABLET PO (09:25)
[2019-06-21] MEDS: THERAPEUTIC MULTIVITAMINS/MINERALS TAB (*BKC) 1 TABLET PO (09:25)
[2019-06-21] MEDS: hydroCHLOROthiazide 25 MG TABLET PO (09:25)
[2019-06-21] MEDS: atenoloL 50 MG TABLET PO (09:25)
[2019-06-21] MEDS: ESCITALOPRAM OXALATE 10 MG TABLET PO (09:25)
[2019-06-21] MEDS: RIVAROXABAN 10 MG TABLET 20 MG PO (09:25)
[2019-06-21 11:36] LABS: Glucose Point of Care 142 (65-105)
[2019-06-21 15:45] VITALS: BP 123/66; PULSE 82; RESP 18; TEMP 36.6; O2SAT 95
--- NOTE | 2019-06-21 16:40 | PC.NURSE ---
Patient sleeping quietly in bed. No signs of distress noted. Breathing even and unlabored. Call light at side.
[2019-06-21] MEDS: metFORMIN HCL XR 500 MG TAB.SR.24H 2000 MG PO (17:13)
[2019-06-21 17:36] LABS: Glucose Point of Care 264 (65-105)
[2019-06-21 20:56] LABS: Glucose Point of Care 170 (65-105)
--- NOTE | 2019-06-21 22:13 | PC.NURSE ---
pt sleeping, respirations even and regular, no evidence of distress noted
[2019-06-22 00:05] VITALS: BP 127/68; PULSE 62; RESP 20; TEMP 37.2; O2SAT 97
--- NOTE | 2019-06-22 01:59 | PC.NURSE ---
pt sleeping, respirations even and regular, no evidence of distress noted
[2019-06-22] MEDS: CENTRAL LINE FLUSH 10 ML IV PUSH ×3 (05:17→21:17)
[2019-06-22 07:30] VITALS: BP 121/85; PULSE 69; RESP 18; TEMP 36.6; O2SAT 95
[2019-06-22 08:31] LABS: Glucose Point of Care 178 (65-105)
[2019-06-22 09:09] VITALS: PULSE 68
[2019-06-22] MEDS: FOLIC ACID 1 MG TABLET PO (09:09)
[2019-06-22] MEDS: SACCHAROMYCES BOULARDII 250 MG CAPSULE PO ×2 (09:09→16:57)
[2019-06-22] MEDS: atenoloL 50 MG TABLET PO (09:09)
[2019-06-22] MEDS: hydroCHLOROthiazide 25 MG TABLET PO (09:09)
[2019-06-22] MEDS: lisinopriL 5 MG TABLET PO (09:09)
[2019-06-22] MEDS: RIVAROXABAN 10 MG TABLET 20 MG PO (09:09)
[2019-06-22] MEDS: THERAPEUTIC MULTIVITAMINS/MINERALS TAB (*BKC) 1 TABLET PO (09:10)
[2019-06-22] MEDS: CYANOCOBALAMIN 1,000 MCG TABLET 1000 MCG PO (09:10)
[2019-06-22] MEDS: ATORVASTATIN 10 MG TABLET PO (09:10)
[2019-06-22] MEDS: ESCITALOPRAM OXALATE 10 MG TABLET PO (09:10)
[2019-06-22 10:53] LABS: Mitochondrial (M2) Ab (IgG) <=20.0 U (<=20.0)
--- NOTE | 2019-06-22 11:00 | PC.NURSE ---
DOREEN Correa in room to work with patient.
[2019-06-22 11:40] LABS: Glucose Point of Care 170 (65-105)
--- NOTE | 2019-06-22 15:30 | PC.NURSE ---
Patient resting quietly in bed. Denies any needs. Call light and belongings within reach.
[2019-06-22 16:15] VITALS: BP 108/69; PULSE 64; RESP 18; TEMP 36.6; O2SAT 97
[2019-06-22] MEDS: metFORMIN HCL XR 500 MG TAB.SR.24H 2000 MG PO (16:57)
[2019-06-22 17:01] LABS: Glucose Point of Care 191 (65-105)
[2019-06-22 21:23] LABS: Glucose Point of Care 188 (65-105)
--- NOTE | 2019-06-22 22:30 | PC.NURSE ---
pt sleeping, no evidence of distress noted
[2019-06-23 00:15] VITALS: BP 117/61; PULSE 62; RESP 18; TEMP 36.5; O2SAT 97
[2019-06-23] MEDS: CENTRAL LINE FLUSH 10 ML IV PUSH ×3 (05:45→22:12)
[2019-06-23 06:05] LABS: Hematocrit 36.8 % (37.0-46.0); Hemoglobin 11.9 g/dL (12.4-15.3); Mean Corpuscular HGB Conc 32.3 g/dL (32.0-36.0); Mean Corpuscular Hemoglobin 29.2 pg (27.0-31.0); Mean Corpuscular Volume 90.2 fL (78.0-102.0); Mean Platelet Volume 8.8 fl (8.7-11.0); Platelet Count Result 365 K/mm3 (150-420); Red Blood Count 4.08 M/mm3 (4.70-6.10); Red Cell Distribution Width 13.1 % (11.6-14.4); White Blood Count 5.3 K/mm3 (4.8-10.8)
[2019-06-23 06:23] LABS: Alanine Aminotransferase 79 U/L (16-63); Alkaline Phosphatase 176 U/L (46-116); Anion Gap 9.9 mmol/L (7-16); Aspartate Amino Transferase 44 U/L (15-37); Bilirubin Direct 0.2 mg/dL (0-0.2); Bilirubin,Total 0.4 mg/dL (0.00-1.00); Blood Urea Nitrogen 15 mg/dL (7-18); Calcium 8.2 mg/dL (8.5-10.1); Carbon Dioxide 29 mmol/L (21-32); Chloride 104 mmol/L (98-108); Estimated CRCL calculation 53 ml/min; Estimated Glomerular Filt Rate > 60; Glucose 128 mg/dL (70-99); Osmolality Calculated 290 mOsm/kg (285-295); Potassium 3.9 mmol/L (3.5-5.1); Sodium 139 mmol/L (136-145); Total Protein 5.5 g/dL (6.4-8.2)
[2019-06-23 07:22] LABS: Glucose Point of Care 132 (65-105)
[2019-06-23 07:26] VITALS: BP 121/69; PULSE 70; RESP 14; TEMP 36.8
[2019-06-23 08:00] VITALS: BP 121/69; PULSE 70; RESP 14; TEMP 36.8
[2019-06-23] MEDS: CYANOCOBALAMIN 1,000 MCG TABLET 1000 MCG PO (08:35)
[2019-06-23] MEDS: atenoloL 50 MG TABLET PO (08:35)
[2019-06-23] MEDS: ATORVASTATIN 10 MG TABLET PO (08:35)
[2019-06-23] MEDS: hydroCHLOROthiazide 25 MG TABLET PO (08:36)
[2019-06-23] MEDS: THERAPEUTIC MULTIVITAMINS/MINERALS TAB (*BKC) 1 TABLET PO (08:36)
[2019-06-23] MEDS: lisinopriL 5 MG TABLET PO (08:36)
[2019-06-23] MEDS: ESCITALOPRAM OXALATE 10 MG TABLET PO (08:36)
[2019-06-23] MEDS: FOLIC ACID 1 MG TABLET PO (08:36)
[2019-06-23] MEDS: RIVAROXABAN 10 MG TABLET 20 MG PO (08:37)
[2019-06-23] MEDS: SACCHAROMYCES BOULARDII 250 MG CAPSULE PO ×2 (08:39→17:34)
[2019-06-23 11:29] LABS: Glucose Point of Care 207 (65-105)
--- NOTE | 2019-06-23 14:52 | P.PNCROSS_ITS ---
Event Note Event Note Event Note: * possibly caused by infection * patient liver enzyme improving. * hepatic workup negative. * ultrasound does not indicate hepatitis patient labs and records have been reviewed patient will possibly discharge or Sunday of this week
--- NOTE | 2019-06-23 14:52 | PM.EVENT ---
Event Note Event Note Event Note: possibly caused by infection patient liver enzyme improving. hepatic workup negative. ultrasound does not indicate hepatitis patient labs and records have been reviewed patient will possibly discharge or Sunday of this week
[2019-06-23 15:59] VITALS: BP 116/54; PULSE 65; RESP 16; TEMP 36.9; O2SAT 96
[2019-06-23 16:00] VITALS: BP 116/54; PULSE 65; RESP 16; TEMP 36.9; O2SAT 96
--- NOTE | 2019-06-23 16:01 | PC.NURSE ---
Patient resting in bed. HOB elevated. PICC line dressing intact, no redness, swelling. Slight red drainage under dressing. Line flushed without dififculty.
[2019-06-23 16:34] LABS: Glucose Point of Care 162 (65-105)
[2019-06-23] MEDS: metFORMIN HCL XR 500 MG TAB.SR.24H 2000 MG PO (17:33)
[2019-06-23 20:43] LABS: Glucose Point of Care 187 (65-105)
[2019-06-24] VITALS: BP 143/77; PULSE 65; RESP 16; TEMP 36.8; O2SAT 96
--- NOTE | 2019-06-24 02:41 | PC.NURSE ---
Sleeping, resp even.
[2019-06-24] MEDS: CENTRAL LINE FLUSH 10 ML IV PUSH ×3 (06:21→21:02)
[2019-06-24 07:40] VITALS: BP 135/71; PULSE 68; RESP 18; TEMP 37; O2SAT 99
[2019-06-24 07:43] LABS: Glucose Point of Care 135 (65-105)
--- NOTE | 2019-06-24 08:05 | PC.NURSE ---
SBA up to chair for breakfast, feeds self, does well
[2019-06-24] MEDS: SACCHAROMYCES BOULARDII 250 MG CAPSULE PO ×2 (09:48→16:38)
[2019-06-24] MEDS: RIVAROXABAN 10 MG TABLET 20 MG PO (09:48)
[2019-06-24 09:49] VITALS: PULSE 74
[2019-06-24] MEDS: FOLIC ACID 1 MG TABLET PO (09:49)
[2019-06-24] MEDS: atenoloL 50 MG TABLET PO (09:49)
[2019-06-24] MEDS: ATORVASTATIN 10 MG TABLET PO (09:49)
[2019-06-24] MEDS: THERAPEUTIC MULTIVITAMINS/MINERALS TAB (*BKC) 1 TABLET PO (09:50)
[2019-06-24] MEDS: CYANOCOBALAMIN 1,000 MCG TABLET 1000 MCG PO (09:50)
[2019-06-24] MEDS: lisinopriL 5 MG TABLET PO (09:50)
[2019-06-24] MEDS: hydroCHLOROthiazide 25 MG TABLET PO (09:50)
[2019-06-24] MEDS: ESCITALOPRAM OXALATE 10 MG TABLET PO (09:50)
[2019-06-24 11:51] LABS: Glucose Point of Care 205 (65-105)
--- NOTE | 2019-06-24 14:22 | PC.NURSE ---
Resting in bed, denies needs at this time, ice to shoulder, picc line flushed with normal saline,
[2019-06-24 16:00] VITALS: BP 111/68; PULSE 72; RESP 18; TEMP 36.8; O2SAT 98
--- NOTE | 2019-06-24 16:27 | PM.EVENT ---
Event Note Event Note Event Note: Dagoberto Boyle and the care team after having a care plan meeting has decided upon as our goal for discharge to home. I have signed a DME order for a quad cane for Dagoberto Boyle to use after discharge for safer ambulation. The patient requires and can safely use a quad cane to ambulate and perform his ADLs. The quad cane will resolve his mobility deficit so that he can remain independent in his home. The patient is otherwise doing well vital signs are stable and no concerns per nursing staff. Will continue the patient in swing rehab care while continuing to monitor for progress and stability. <Anayeli Sargent, BOARD DESIGN ENGINEER - Last Filed: 06/24/19 16:31>
[2019-06-24] MEDS: metFORMIN HCL XR 500 MG TAB.SR.24H 2000 MG PO (16:37)
[2019-06-24 16:46] LABS: Glucose Point of Care 208 (65-105)
--- NOTE | 2019-06-24 18:07 | PC.NURSE ---
bandaids removed on L shoulder, 4 sutures noted, emerson lei is aware and will remove them in the morning tomorrow 06/24, open to air and well approximated
[2019-06-24 21:07] LABS: Glucose Point of Care 138 (65-105)
[2019-06-25] VITALS: BP 120/70; PULSE 68; RESP 20; TEMP 37; O2SAT 96
--- NOTE | 2019-06-25 03:10 | PC.NURSE ---
Remains asleep on hourly rounds, resp even. No signs of distress noted.
[2019-06-25] MEDS: CENTRAL LINE FLUSH 10 ML IV PUSH (05:23)
[2019-06-25 07:32] VITALS: BP 128/72; PULSE 70; RESP 18; TEMP 36.8; O2SAT 97
[2019-06-25] MEDS: ESCITALOPRAM OXALATE 10 MG TABLET PO (08:19)
[2019-06-25] MEDS: hydroCHLOROthiazide 25 MG TABLET PO (08:19)
[2019-06-25] MEDS: RIVAROXABAN 10 MG TABLET 20 MG PO (08:19)
[2019-06-25] MEDS: THERAPEUTIC MULTIVITAMINS/MINERALS TAB (*BKC) 1 TABLET PO (08:19)
[2019-06-25 08:20] VITALS: PULSE 77
[2019-06-25] MEDS: atenoloL 50 MG TABLET PO (08:20)
[2019-06-25] MEDS: lisinopriL 5 MG TABLET PO (08:20)
[2019-06-25] MEDS: CYANOCOBALAMIN 1,000 MCG TABLET 1000 MCG PO (08:20)
[2019-06-25] MEDS: FOLIC ACID 1 MG TABLET PO (08:20)
[2019-06-25] MEDS: SACCHAROMYCES BOULARDII 250 MG CAPSULE PO ×2 (08:21→18:57)
[2019-06-25] MEDS: ATORVASTATIN 10 MG TABLET PO (09:00)
[2019-06-25 10:30] VITALS: TEMP 36.6
[2019-06-25 13:08] LABS: CRP 10.7 mg/dL (0.0-0.9)
--- NOTE | 2019-06-25 15:15 | PM.EVENT ---
Event Note Event Note Event Note: Suture removal procedure note: there were 4 small pursestring sutures in place from the patient's orthoscopic I&D from [facility]. All sutures remained intact. Cleansed all sites with alcohol swabs 1st. Sutures were clipped using suture removal kit including scissors and plastic tweezer. no sutures remain at this time. There was no bleeding, No drainage, and no redness. No sign of infection or erythema. Patient tolerated well, and no signs or symptoms of pain throughout the procedure. All sites are clean and dry, and swabbed again at the end with alcohol. Left shoulder is responding well to physical therapy and occupational therapy. His passive range of motion is significantly higher and improved and closer to normal than his active range of motion. You can see him actively tensing up and anticipating pain with some of his passive range of motion. There is a peripheral PICC line in place to the right upper extremity. This to is removed today. The patient is to be discharged tomorrow according to his care plan meeting and his rehab goals and success. This PICC line is a 1 lumen line. The PICC insertion site has no redness, no drainage, no erythema, and no bleeding. There were no sutures holding the PICC in place, only a PICC line device adhering to his skin. This was removed with no difficulty in his skin remains intact. The PICC line itself was examined upon removal, found to have no nicks, no deviations or alterations or concerns upon examination, the PICC line remains fully intact, with the tip also intact. Pressure was held for 3-4 minutes as the patient is on anticoagulation. Site was again examined and found to not be bleeding, gauze dressing was taped into place, and patient as well as nursing staff informed to monitor the site for any bleeding. Patient denied any discomfort or any concern during or after the procedure regarding his PICC line removal or his suture removal. Patient left in the care of the occupational therapist for further work on his left shoulder.
[2019-06-25 16:00] VITALS: BP 118/68; PULSE 72; RESP 20; TEMP 37; O2SAT 96
[2019-06-25] MEDS: metFORMIN HCL XR 500 MG TAB.SR.24H 2000 MG PO (18:58)
[2019-06-25 20:47] LABS: Glucose Point of Care 211 (65-105)
[2019-06-26] VITALS: BP 116/66; PULSE 62; RESP 16; TEMP 36.4; O2SAT 97
[2019-06-26 07:05] VITALS: BP 102/62; PULSE 70; RESP 18; TEMP 36.5; O2SAT 97
--- NOTE | 2019-06-26 07:30 | PC.NURSE ---
PT in room to work with patient.
[2019-06-26] MEDS: RIVAROXABAN 10 MG TABLET 20 MG PO (08:23)
[2019-06-26] MEDS: SACCHAROMYCES BOULARDII 250 MG CAPSULE PO (08:23)
[2019-06-26 08:24] VITALS: PULSE 70
[2019-06-26] MEDS: THERAPEUTIC MULTIVITAMINS/MINERALS TAB (*BKC) 1 TABLET PO (08:24)
[2019-06-26] MEDS: atenoloL 50 MG TABLET PO (08:24)
[2019-06-26] MEDS: lisinopriL 5 MG TABLET PO (08:24)
[2019-06-26] MEDS: FOLIC ACID 1 MG TABLET PO (08:24)
[2019-06-26] MEDS: CYANOCOBALAMIN 1,000 MCG TABLET 1000 MCG PO (08:24)
[2019-06-26] MEDS: ESCITALOPRAM OXALATE 10 MG TABLET PO (08:25)
[2019-06-26] MEDS: hydroCHLOROthiazide 25 MG TABLET PO (08:25)
[2019-06-26] MEDS: ATORVASTATIN 10 MG TABLET PO (08:25)
[2019-06-26 08:36] LABS: Glucose Point of Care 261 (65-105)
[2019-06-26 08:36] LABS: Glucose Point of Care 131 (65-105)
[2019-06-26 08:36] LABS: Glucose Point of Care 215 (65-105)
[2019-06-26 08:37] LABS: Glucose Point of Care 194 (65-105)
[2019-06-26 08:37] LABS: Glucose Point of Care 182 (65-105)
--- NOTE | 2019-06-26 09:00 | PC.NURSE ---
OT in room to work with patient.
[2019-06-26] MEDS: BACITRACIN/POLYMYXIN B OINT 15 GM TUBE 1 APPLIC TOPICAL (10:00)
[2019-06-26 11:06] LABS: Basophils Absolute Auto 0.05 K/mm3 (0.00-0.10); Basophils Percent Auto 0.6 % (0.0-1.0); Eosinophils Absolute Auto 0.16 K/mm3 (0.02-0.50); Hemoglobin 13.1 g/dL (12.4-15.3); Immature Granulocyte Absolute 0.04 K/mm3 (0.00-0.00); Immature Granulocyte Percent A 0.5 % (0.0-0.0); Lymphocytes Absolute Auto 1.11 K/mm3 (1.10-4.50); Lymphocytes Percent Auto 14.1 % (18.0-42.0); Mean Corpuscular HGB Conc 32.8 g/dL (32.0-36.0); Mean Corpuscular Hemoglobin 29.6 pg (27.0-31.0); Mean Corpuscular Volume 90.3 fL (78.0-102.0); Mean Platelet Volume 8.5 fl (8.7-11.0); Monocytes Absolute Auto 0.65 K/mm3 (0.10-0.90); Monocytes Percent Auto 8.2 % (2.0-11.0); Neutrophils Absolute Auto 5.9 K/mm3 (1.7-7.2); Neutrophils Percent Auto 74.6 % (50.0-70.0); Platelet Count Result 369 K/mm3 (150-420); Red Blood Count 4.43 M/mm3 (4.70-6.10); White Blood Count 7.9 K/mm3 (4.8-10.8)
[2019-06-26 11:27] LABS: Alanine Aminotransferase 62 U/L (16-63); Albumin Level 2.5 g/dL (3.4-5.0); Alkaline Phosphatase 152 U/L (46-116); Anion Gap 15.7 mmol/L (7-16); Aspartate Amino Transferase 40 U/L (15-37); Bilirubin,Total 0.5 mg/dL (0.00-1.00); Blood Urea Nitrogen 18 mg/dL (7-18); CRP 7.4 mg/dL (0.0-0.9); Calcium 8.8 mg/dL (8.5-10.1); Carbon Dioxide 27 mmol/L (21-32); Chloride 101 mmol/L (98-108); Estimated CRCL calculation 46 ml/min; Estimated Glomerular Filt Rate 58; Glucose 131 mg/dL (70-99); Osmolality Calculated 293 mOsm/kg (285-295); Potassium 3.7 mmol/L (3.5-5.1); Sodium 140 mmol/L (136-145)
[2019-06-26 11:38] LABS: Glucose Point of Care 100 (65-105)
[2019-06-26 11:42] LABS: Glucose Point of Care 96 (65-105)
--- NOTE | 2019-06-26 12:33 | P.DS_ITS ---
DS: Diagnosis Admitting Diagnosis Admitting Diagnosis: Weakness Discharge Diagnosis (1) Weakness: Code(s): R53.1 - Weakness Status: Acute Assessment and Plan: * admitted to swing rehabilitation here from [facility] in [facility]. * Exhibit tolerance during physical activity as evidenced by a normal fluctuation of vital signs during physical activity. * Patient will be ability to perform required activities of daily living. * Provide appropriate nutrition for healing and strength. * Use appropriate to prevent falls. * Met goals for his physical therapy/occupational therapy * will continue Home health PT/OT /RN/ Aide after discharge. * will need to continue his home exercises after discharge in order to continue to improve (2) Septic arthritis: Code(s): M00.9 - Pyogenic arthritis, unspecified Status: Acute Assessment and Plan: * CT of his left shoulder showed a small effusion. He was evaluated by Ortho Dr. De Leon and admitted for septic arthritis of the left shoulder. * On June 08 they collected a shoulder aspirate sample that grew nothing. * June 09, he underwent arthroscopic irrigation debridement of the left shoulder with Dr. Sierra. We have requested culture results and sensitivities as well as infectious disease notes, but have yet to see those. * Dagoberto has been admitted for swing rehabilitation to improve the mobility and strength of his left shoulder and arm through PT/OT, continue improving through IV antibiotics, and medical monitoring for improvement of infection and reduction of swelling to left arm. * CALL and SCHEDULE Follow up in 1 week after discharge; with Surgeon Dr. David Sierra, [facility], in [place], [place]. [phone]. * Then on July 23 at 8am, arrive at 7:45am, appointment with Dr. Prasanna Dominguez in [place], [place]. [facility] medical group, Foot and Ankle Specialist. [phone] * WBC's continue to improve from 7.9, 6.8, 5.3, 7.9 today, and no fevers. * CRP trends are 22, 17.2, 16.5, 10.7, and today is 7.4 * Met goals for his physical therapy/occupational therapy * will continue Home health PT/OT /RN/ Aide after discharge. * will need to continue his home exercises after discharge in order to continue to improve (3) HTN (hypertension): Code(s): I10 - Essential (primary) hypertension Status: Acute Assessment and Plan: * BPs WNL, continue current medication at discharge. SBPs 110-130s * STABLE on home meds , CHRONIC. * Vital signs Q8 hours. (4) IDDM (insulin dependent diabetes mellitus): Status: Acute Assessment and Plan: * blood sugar less than 200, last were 128 and 131. * continue Accu-Cheks at home * continue low dose SSI with hypoglycemia PRN meds in place as well. * diabetic carb controlled diet * will continue to monitor, will adjust medication as needed (5) Elevated liver enzymes: Code(s): R74.8 - Abnormal levels of other serum enzymes Status: Acute Assessment and Plan: * it appears that patient's AST and ALT was elevated at [facility] AST is 83 ALT is 113. unsure if that is patient's baseline. * ordered hepatic panel with ultrasound of the abdomen all pending * for hepatotoxicity medication * IMPROVING and some are now WNL per labwork done today. DS: Summary Time Spent with Patient Time attestation: Total time spent providing and/or coordinating discharge services:>90 min Exam Const: General: comfortable and no acute distress; No in distress, confusion or uncomfortable Orientation/
--- NOTE | 2019-06-26 12:33 | PM.DS ---
DS: Diagnosis Admitting Diagnosis Admitting Diagnosis: Weakness Discharge Diagnosis (1) Weakness: Code(s): R53.1 - Weakness Status: Acute Assessment and Plan: admitted to [facility] rehabilitation here from [facility] in [facility]. Exhibit tolerance during physical activity as evidenced by a normal fluctuation of vital signs during physical activity. Patient will be ability to perform required activities of daily living. Provide appropriate nutrition for healing and strength. Use appropriate to prevent falls. Met goals for his physical therapy/occupational therapy will continue Home health PT/OT /RN/ Aide after discharge. will need to continue his home exercises after discharge in order to continue to improve (2) Septic arthritis: Code(s): M00.9 - Pyogenic arthritis, unspecified Status: Acute Assessment and Plan: CT of his left shoulder showed a small effusion. He was evaluated by Ortho Dr. De Leon and admitted for septic arthritis of the left shoulder. On June 08 they collected a shoulder aspirate sample that grew nothing. June 09, he underwent arthroscopic irrigation debridement of the left shoulder with Dr. Sierra. We have requested culture results and sensitivities as well as infectious disease notes, but have yet to see those. Dagoberto has been admitted for [facility] rehabilitation to improve the mobility and strength of his left shoulder and arm through PT/OT, continue improving through IV antibiotics, and medical monitoring for improvement of infection and reduction of swelling to left arm. CALL and SCHEDULE Follow up in 1 week after discharge; with Surgeon Dr. David Sierra, [facility], in [place], [place]. [phone]. Then on July 23 at 8am, arrive at 7:45am, appointment with Dr. Prasanna Dominguez in [place], [place]. [facility] medical group, Foot and Ankle Specialist. [phone] WBC's continue to improve from 7.9, 6.8, 5.3, 7.9 today, and no fevers. CRP trends are 22, 17.2, 16.5, 10.7, and today is 7.4 Met goals for his physical therapy/occupational therapy will continue Home health PT/OT /RN/ Aide after discharge. will need to continue his home exercises after discharge in order to continue to improve (3) HTN (hypertension): Code(s): I10 - Essential (primary) hypertension Status: Acute Assessment and Plan: BPs WNL, continue current medication at discharge. SBPs 110-130s STABLE on home meds , CHRONIC. Vital signs Q8 hours. (4) IDDM (insulin dependent diabetes mellitus): Status: Acute Assessment and Plan: blood sugar less than 200, last were 128 and 131. continue Accu-Cheks at home continue low dose SSI with hypoglycemia PRN meds in place as well. diabetic carb controlled diet will continue to monitor, will adjust medication as needed (5) Elevated liver enzymes: Code(s): R74.8 - Abnormal levels of other serum enzymes Status: Acute Assessment and Plan: it appears that patient's AST and ALT was elevated at [facility] AST is 83 ALT is 113. unsure if that is patient's baseline. ordered hepatic panel with ultrasound of the abdomen all pending for hepatotoxicity medication IMPROVING and some are now WNL per labwork done today. DS: Summary Time Spent with Patient Time attestation: Total time spent providing and/or coordinating discharge services:>90 min Exam Const: General: comfortable and no acute distress; No in distress, confusion or uncomfortable Orientation/consciousness: No confusion Limitations: No altered mental status HENMT: Mouth: Yes moist mucous membranes Eyes: General: appearance normal, both eyes and all related structures Pupils: Equal, round and reactive pupils present EOM: EOMs intact bilaterally Resp: Effort & Inspection: normal respiratory effort Auscultation: clear to auscultation bilaterally, no crackles, no rales, n
--- NOTE | 2019-06-26 14:20 | PC.NURSE ---
All discharge instructions and education reviewed with patient and patients neice. Both state understanding of instructions. All medications and belongings sent home with patient. Patient accompanied to front door via wheelchair by this nurse. Left via private vehicle with niece.
== END 2019-06-26 14:20 | disposition home or self-care (01) | DRG 550 ==
PROVIDERS: Nurse Practitioner; Admitting Provider Emergency Medicine; PCP Internal Medicine; Visit Provider Emergency Medicine
DX: M00.9 Pyogenic arthritis, unspecified (principal); R53.1 Weakness; R74.8 Abnormal levels of other serum enzymes; I10 Essential (primary) hypertension; E11.40 Type 2 diabetes mellitus with diabetic neuropathy, unspecified; Z79.4 Long term (current) use of insulin; Z87.891 Personal history of nicotine dependence
CPT/HCPCS: 36415; 76705; 80053; 80076; 80202; 80307; 81001; 82103; 82140; 82248; 82272; 82390; 82728; 83520; 83540; 83550; 84443; 85025; 85027; 85652; 86038; 86140; 87040; 87045; 87046; 87086; 87088; 87269; 87272; 87324; 87427; 89055; 97110; 97116; 97161; 97165; 97530; 97535; A9270; J0696; J1815; J3370

== ENCOUNTER 2019-09-27 01:03 | Outpatient (CLI) | payer MEDICARE, MEDICAID, SELFPAY ==
[2019-09-27 18:30] LABS: SARS-CoV-2 RNA PCR Negative
== END 2019-09-27 01:04 | disposition home or self-care (01) ==
LOC: ANHCOVIDDT 01:04
PROVIDERS: PCP Internal Medicine; Visit Provider Internal Medicine Gastroenterology
DX: Z01.812 Encounter for preprocedural laboratory examination (principal); Z11.59 Encounter for screening for other viral diseases
CPT/HCPCS: 87635; C9803; U0003

== ENCOUNTER 2019-09-30 02:07 | Day surgery (SDC) | payer MEDICARE, MEDICAID, SELFPAY ==
--- NOTE | 2019-09-30 07:43 | P.PNAN_ITS ---
Anes - Initial Pre Proc Eval Procedure: Operation Date: 09/30/19 11:00 Proposed Procedures p Colonoscopy - Liam Shi MD Date/Time: 09/30/19 07:43 Surgeon: Liam Shi MD Pre Op Diagnosis: Rectal Bleeding Patient Data Age: 79 Gender: M Height: Weight: Allergies Allergy/AdvReac Type Severity Reaction Status Date / Time Penicillins Allergy Hives Verified 09/30/19 10:11 Home Medications Medication Instructions Recorded Confirmed Type Adults Multivitamin 1 tablet PO DAILY 06/13/19 09/30/19 History Jardiance 10 mg PO DAILY 06/13/19 09/30/19 History Tresiba FlexTouch U-200 30 unit SUBCUT DAILY 06/13/19 09/30/19 History atenolol 50 mg PO DAILY 06/13/19 09/30/19 History atorvastatin 10 mg PO DAILY 06/13/19 09/30/19 History cyanocobalamin (vitamin B-12) 1,000 mcg PO DAILY 06/13/19 09/30/19 History escitalopram oxalate 10 mg PO DAILY 06/13/19 09/30/19 History folic acid 1 mg PO DAILY 06/13/19 09/30/19 History hydrochlorothiazide 25 mg PO DAILY 06/13/19 09/30/19 History lisinopril 5 mg PO DAILY 06/13/19 09/30/19 History metformin 2,000 mg PO QPM 06/13/19 09/30/19 History rivaroxaban 20 mg PO DAILY 06/13/19 09/30/19 History acetaminophen [Tylenol Extra 500 mg PO Q6H PRN #90 tablet 06/26/19 09/30/19 Rx Strength] Patient hx anesthesia problems: none Family hx anesthesia problems: none PMFSH Past Medical History Medical History (Updated 09/16/19 @ 13:54 by Liam Shi MD) Diabetic neuropathy DVT (deep venous thrombosis) Encounter for incision and drainage procedure H/O needle biopsy HTN (hypertension) 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 IDDM (insulin dependent diabetes mellitus) Rectal bleeding Social History Social History Smoking status: Former smoker Tobacco type: cigarettes Alcohol intake: never Substance use: never Gender identity (if verbalized by the patient): Male Spiritual care concerns: No Agree to blood products: Yes Anes - Eval Final PreProcedure Day of Procedure 09/30/19 07:43 Patient weight: obese Heart: regular rate and rhythm Lungs: clear to auscultation and normal air movement Airway: Mallampati scale class III Neurological: alert and oriented Last oral intake: >/= 8 hours ASA classification: III Emergent: no Anesthetic plan: proceed Anesthesia type and monitoring: general GIVS and standard monitoring Informed Consent: The patient's anesthetic plan and its attendant risks and kody efits were discussed with the patient/family/POA. Questions were solicited and answers provided to the satisfaction of the patient/family/POA.
[2019-09-30 10:12] LABS: Glucose Point of Care 158 (65-105)
[2019-09-30 10:13] VITALS: BP 139/73; PULSE 62; RESP 18; TEMP 36.1; O2SAT 98
[2019-09-30] MEDS: LACTATED RINGERS 1,000 ML 150 ML IV CONT (10:25)
--- NOTE | 2019-09-30 11:00 | WPDHPUPDATE1 ---
History and Physical Update Update Date/Time: 09/30/19 11:00 History and Physical has been reviewed, including an updated exam of the patient. There are NO changes in the patient's condition. Risks, benefits, and alternatives have been discussed and questions answered. Patient agrees to proceed with procedure.
[2019-09-30 11:44] VITALS: BP 101/65; PULSE 53; RESP 13; O2SAT 98
[2019-09-30 11:54] VITALS: BP 132/75; PULSE 53; RESP 16; O2SAT 98
[2019-09-30 12:04] VITALS: BP 127/78; PULSE 55; RESP 14; O2SAT 98
[2019-09-30 12:33] LABS: Glucose Point of Care 142 (65-105)
== END 2019-09-30 12:30 | disposition home or self-care (01) ==
PROVIDERS: PCP Internal Medicine; Visit Provider Internal Medicine Gastroenterology
PROC: 0DJD8ZZ Inspection of Lower Intestinal Tract, Via Natural or Artificial Opening Endoscopic (ICD-10-PCS; CPT 45378; principal; 2019-09-30 11:00)
DX: K62.5 Hemorrhage of anus and rectum (principal); K57.30 Diverticulosis of large intestine without perforation or abscess without bleeding; K64.8 Other hemorrhoids; E11.40 Type 2 diabetes mellitus with diabetic neuropathy, unspecified; I10 Essential (primary) hypertension; Z86.718 Personal history of other venous thrombosis and embolism; Z79.01 Long term (current) use of anticoagulants; Z79.84 Long term (current) use of oral hypoglycemic drugs; Z87.891 Personal history of nicotine dependence; E66.9 Obesity, unspecified; Z68.29 Body mass index [BMI] 29.0-29.9, adult
CPT/HCPCS: 45378; J2001; J2704; J7120

== ENCOUNTER 2019-11-18 09:51 | Outpatient (CLI) | payer MEDICARE, SELFPAY ==
[2019-11-18 10:12] LABS: Basophils Absolute Auto 0.05 K/mm3 (0.00-0.10); Basophils Percent Auto 0.7 % (0.0-1.0); Eosinophils Absolute Auto 0.14 K/mm3 (0.02-0.50); Hematocrit 50.5 % (37.0-46.0); Hemoglobin 16.3 g/dL (12.4-15.3); Immature Granulocyte Absolute 0.02 K/mm3 (0.00-0.00); Immature Granulocyte Percent A 0.3 % (0.0-0.0); Lymphocytes Percent Auto 24.9 % (18.0-42.0); Mean Corpuscular HGB Conc 32.3 g/dL (32.0-36.0); Mean Corpuscular Hemoglobin 28.6 pg (27.0-31.0); Mean Corpuscular Volume 88.8 fL (78.0-102.0); Mean Platelet Volume 9.9 fl (8.7-11.0); Monocytes Absolute Auto 0.44 K/mm3 (0.10-0.90); Monocytes Percent Auto 6.4 % (2.0-11.0); Neutrophils Absolute Auto 4.5 K/mm3 (1.7-7.2); Neutrophils Percent Auto 65.7 % (50.0-70.0); Platelet Count Result 200 K/mm3 (150-420); Red Blood Count 5.69 M/mm3 (4.70-6.10); Red Cell Distribution Width 13.2 % (11.6-14.4); White Blood Count 6.8 K/mm3 (4.8-10.8)
[2019-11-18 10:20] LABS: Hemoglobin A1C 9.2 % (<5.7)
[2019-11-18 10:54] LABS: Alanine Aminotransferase 28 U/L (16-63); Albumin Level 4.2 g/dL (3.4-5.0); Alkaline Phosphatase 88 U/L (46-116); Anion Gap 10 mmol/L (8-16); Aspartate Amino Transferase 14 U/L (15-37); Bilirubin,Total 0.7 mg/dL (0.00-1.00); Blood Urea Nitrogen 27 mg/dL (7-18); Calcium 9.1 mg/dL (8.5-10.1); Carbon Dioxide 28 mmol/L (21-32); Chloride 101 mmol/L (98-108); Estimated Glomerular Filt Rate 43; Glucose 325 mg/dL (70-99); Osmolality Calculated 306 mOsm/kg (285-295); Potassium 3.7 mmol/L (3.5-5.1); Sodium 139 mmol/L (136-145); Total Protein 7.4 g/dL (6.4-8.2)
== END 2019-11-18 09:52 | disposition home or self-care (01) ==
LOC: CHSLAB 09:54
PROVIDERS: PCP Internal Medicine; Visit Provider Internal Medicine
DX: E11.9 Type 2 diabetes mellitus without complications (principal)
CPT/HCPCS: 36415; 80053; 83036; 85025

== ENCOUNTER 2020-05-13 08:14 | Outpatient (CLI) | payer MEDICARE, SELFPAY ==
[2020-05-13 08:30] LABS: Basophils Absolute Auto 0.06 K/mm3 (0.00-0.10); Eosinophils Absolute Auto 0.14 K/mm3 (0.02-0.50); Eosinophils Percent Auto 2.4 % (1.0-6.0); Hematocrit 51.6 % (37.0-46.0); Immature Granulocyte Absolute 0.02 K/mm3 (0.00-0.00); Immature Granulocyte Percent A 0.3 % (0.0-0.0); Lymphocytes Absolute Auto 1.85 K/mm3 (1.10-4.50); Lymphocytes Percent Auto 31.8 % (18.0-42.0); Mean Corpuscular HGB Conc 32.9 g/dL (32.0-36.0); Mean Corpuscular Hemoglobin 28.8 pg (27.0-31.0); Mean Corpuscular Volume 87.5 fL (78.0-102.0); Mean Platelet Volume 9.8 fl (8.7-11.0); Monocytes Absolute Auto 0.47 K/mm3 (0.10-0.90); Monocytes Percent Auto 8.1 % (2.0-11.0); Neutrophils Absolute Auto 3.3 K/mm3 (1.7-7.2); Neutrophils Percent Auto 56.4 % (50.0-70.0); Platelet Count Result 170 K/mm3 (150-420); Red Cell Distribution Width 13.8 % (11.6-14.4); White Blood Count 5.8 K/mm3 (4.8-10.8)
[2020-05-13 08:42] LABS: Hemoglobin A1C 9.9 % (<5.7)
[2020-05-13 09:03] LABS: Alanine Aminotransferase 35 U/L (16-63); Albumin Level 3.8 g/dL (3.4-5.0); Alkaline Phosphatase 76 U/L (46-116); Anion Gap 11 mmol/L (8-16); Aspartate Amino Transferase 22 U/L (15-37); Bilirubin,Total 0.9 mg/dL (0.00-1.00); Blood Urea Nitrogen 25 mg/dL (7-18); Calcium 8.8 mg/dL (8.5-10.1); Carbon Dioxide 29 mmol/L (21-32); Chloride 102 mmol/L (98-108); Estimated Glomerular Filt Rate 55; Glucose 161 mg/dL (70-99); Osmolality Calculated 301 mOsm/kg (285-295); Potassium 3.2 mmol/L (3.5-5.1); Sodium 142 mmol/L (136-145); Total Protein 7.1 g/dL (6.4-8.2)
== END 2020-05-13 08:15 | disposition home or self-care (01) ==
PROVIDERS: PCP Internal Medicine; Visit Provider Internal Medicine
DX: E11.9 Type 2 diabetes mellitus without complications (principal)
CPT/HCPCS: 36415; 80053; 83036; 85025

== ENCOUNTER 2020-09-20 08:00 | Outpatient (CLI) | payer MEDICARE, SELFPAY ==
[2020-09-20 09:06] LABS: Hemoglobin A1C 7.4 % (<5.7)
[2020-09-20 09:31] LABS: Alanine Aminotransferase 27 U/L (16-63); Albumin Level 3.8 g/dL (3.4-5.0); Alkaline Phosphatase 69 U/L (46-116); Anion Gap 13 mmol/L (8-16); Aspartate Amino Transferase 19 U/L (15-37); Bilirubin,Total 0.8 mg/dL (0.00-1.00); Blood Urea Nitrogen 28 mg/dL (7-18); Calcium 8.9 mg/dL (8.5-10.1); Carbon Dioxide 25 mmol/L (21-32); Chloride 107 mmol/L (98-108); Cholesterol 109 mg/dL (0-200); Estimated Glomerular Filt Rate > 60; Glucose 125 mg/dL (70-99); HDL Direct 42 mg/dL (40-60); LDL Cholesterol Calculated 46 mg/dL (<130); Osmolality Calculated 306 mOsm/kg (285-295); Potassium 3.8 mmol/L (3.5-5.1); Sodium 145 mmol/L (136-145); Total Protein 6.9 g/dL (6.4-8.2); Triglycerides 106 mg/dL (0-150)
== END 2020-09-20 08:01 | disposition home or self-care (01) ==
LOC: CHSLAB 08:03
PROVIDERS: PCP Internal Medicine; Visit Provider Internal Medicine
DX: E11.9 Type 2 diabetes mellitus without complications (principal); E78.5 Hyperlipidemia, unspecified
CPT/HCPCS: 36415; 80053; 80061; 83036

== ENCOUNTER 2020-12-21 08:23 | Outpatient (CLI) | payer MEDICARE, SELFPAY ==
[2020-12-21 09:01] LABS: Hemoglobin A1C 6.9 % (<5.7)
[2020-12-21 10:36] LABS: Alanine Aminotransferase 32 U/L (16-63); Albumin Level 3.7 g/dL (3.4-5.0); Alkaline Phosphatase 68 U/L (46-116); Anion Gap 10 mmol/L (8-16); Aspartate Amino Transferase 18 U/L (15-37); Bilirubin,Total 0.7 mg/dL (0.00-1.00); Blood Urea Nitrogen 23 mg/dL (7-18); Calcium 8.6 mg/dL (8.5-10.1); Carbon Dioxide 29 mmol/L (21-32); Chloride 108 mmol/L (98-108); Cholesterol 90 mg/dL (0-200); Estimated Glomerular Filt Rate 60; Glucose 78 mg/dL (70-99); HDL Direct 40 mg/dL (40-60); LDL Cholesterol Calculated 39 mg/dL (<130); Osmolality Calculated 306 mOsm/kg (285-295); Potassium 3.7 mmol/L (3.5-5.1); Sodium 147 mmol/L (136-145); Total Protein 6.7 g/dL (6.4-8.2); Triglycerides 55 mg/dL (0-150)
[2020-12-21 10:56] LABS: Thyroid Stimulating Hormone 3.18 uIU/mL (0.36-3.74)
== END 2020-12-21 08:24 | disposition home or self-care (01) ==
LOC: CHSLAB 08:25
PROVIDERS: PCP Internal Medicine; Visit Provider Internal Medicine
DX: E11.9 Type 2 diabetes mellitus without complications (principal)
CPT/HCPCS: 36415; 80053; 80061; 83036; 84443